=== PATIENT | female | born 1990 | race Caucasian/White ===

== ENCOUNTER → 2020-09-05 14:14 | Outpatient (CLI) | payer OTHER, SELFPAY ==
--- NOTE | 2020-09-05 14:20 | DI.RAD.S_ITS ---
PROCEDURE: XR LUMBAR SPINE 2-3V INDICATIONS: POST LUMAR LAMINECTOMY TECHNIQUE: 3 views of the lumbar spine were acquired. COMPARISON: None. FINDINGS: Bones: 5 [id number] vertebrae are present. There is normal bony alignment. No vertebral body compression fractures. No suspicious bony lesions. An IUD is present. Soft tissues: Overlying bowel gas pattern is normal. No suspicious soft tissue calcifications. IMPRESSION: Normal lumbar spine. Dictated by: Waldemar Corral M.D. on 09/05/2020 at 16:17 Approved by: Waldemar Corral M.D. on 09/05/2020 at 16:18
== END ==
PROVIDERS: PCP Family Medicine; Referring Provider Physician Assistant; Visit Provider Physician Assistant
DX: Z98.890 Other specified postprocedural states (principal); Z09 Encounter for follow-up examination after completed treatment for conditions other than malignant neoplasm
CPT/HCPCS: 72100

== ENCOUNTER → 2020-11-27 09:31 | Outpatient (CLI) | payer OTHER, SELFPAY ==
[2020-11-27 10:38] LABS: Add Manual Diff / Slide Review NO; Basophils Absolute Auto 100 /uL (0-100); Basophils Percent Auto 1.5 % (0-2); Eosinophils Absolute Auto 400 /uL (0-450); Eosinophils Percent Auto 3.6 % (2-4); Hematocrit 40.8 % (36-46); Hemoglobin 12.9 g/dL (12.0-16.0); Lymphocytes Absolute Auto 3100 /uL (1100-4500); Lymphocytes Percent Auto 31.2 % (25-40); Mean Corpuscular HGB Conc 31.6 % (30-36); Mean Corpuscular Volume 85.4 fL (80-100); Monocytes Absolute Auto 700 /uL (0-900); Monocytes Percent Auto 7.1 % (3-14); Neutrophils Absolute Auto 5600 /uL (1500-7000); Neutrophils Percent Auto 56.6 % (50-75); Platelet Count 328 X10^3/uL (150-400); Red Blood Cell Count 4.78 X10^6/uL (4.0-5.2); Red Cell Distribution Width 13.1 % (11.6-14.8)
[2020-11-27 11:15] LABS: Alanine Aminotransferase 65 IU/L (<35); Albumin 4.5 g/dL (3.5-5.0); Albumin Globulin Ratio 1.6 (1.0-2.8); Alkaline Phosphatase 126 U/L (38-126); Aspartate Aminotransferase 45 IU/L (14-36); BUN Creatinine Ratio 14.3 (6-22); Bilirubin Total 0.2 mg/dL (0.2-1.3); Blood Urea Nitrogen 8 mg/dL (7-17); Carbon Dioxide 28 mmol/L (22-32); Chloride 103 mmol/L (98-107); Estimated Glomerular Filt Rate > 60.0 mL/min (>60); Globulin 2.9 g/dL (1.7-4.1); Glucose 88 mg/dL (70-100); HEMOLYSIS < 15 (0-50); Potassium 4.8 mmol/L (3.4-5.1); Sodium 140 mmol/L (137-145); Total Protein 7.4 g/dL (6.3-8.2)
[2020-11-27 11:48] LABS: TSH w/ Reflex to FT4 1.45 uIU/mL (0.47-4.68)
[2020-11-27 17:39] LABS: Cholesterol 198 mg/dL (140-199); HDL Cholesterol 50 mg/dL (40-60); LDL Cholesterol Calculated 116 mg/dL (<100); Triglycerides 159 mg/dL (35-150)
[2020-11-28 12:09] LABS: Insulin Level Total 27.6 uIU/mL (2.6-24.9)
[2020-12-03 07:08] LABS: Percent Free Testosterone 1.63 % (0.50-2.80); Testosterone Free 0.69 ng/dL (0.10-0.85); Testosterone Total 42.4 ng/dL (10.0-55.0)
== END ==
PROVIDERS: PCP Family Medicine; Referring Provider Obstetrics & Gynecology; Visit Provider Obstetrics & Gynecology
DX: R10.2 Pelvic and perineal pain (principal)
CPT/HCPCS: 36415; 80053; 80061; 82627; 83525; 84402; 84403; 84443; 85025

== ENCOUNTER → 2021-04-30 08:16 | Outpatient (CLI) | payer BC, SELFPAY ==
--- NOTE | 2021-04-30 | DI.MRI.S_ITS ---
PROCEDURE: MR LUMBAR SPINE WO CON INDICATIONS: Intervertebral disc disorders with radiculopathy TECHNIQUE: Noncontrast sagittal T1 spin echo and T2 fast echo, sagittal STIR, axial T1 and T2 fast spin echo through the lumbar spine. In cases with scoliosis, additional coronal T2 fast spin echo may be performed. COMPARISON: Outside Film, MR, MR LUMBAR SPINE WITHOUT CONTRAST, 07/16/2020, 22:48. FINDINGS: These images demonstrate postsurgical changes of left hemilaminectomy at L5-S1 for presumed microdiscectomy. There are expected postsurgical changes in the regional soft tissues. No fluid collection or other unexpected postsurgical finding in the region. At L5-S1, there is disc desiccation and disc height loss with an annular fissure and diffuse disc bulge along with a superimposed broad-based posterior disc protrusion. Herniated disc material flattens and indents the ventral thecal sac and significantly displaces the bilateral descending S1 nerve roots within both subarticular zones. Findings are suspicious for impingement. Foraminal components of the disc bulge and facet hypertrophy combine to produce moderate left and mild right neural foraminal stenosis. There is mass effect upon the exiting left L5 nerve root within the left neural foramen. At L4-L5, disc desiccation and disc height loss with a an annular fissure and posterior disc protrusion. Disc material flattens and indents the ventral thecal sac with mild displacement of the descending L5 nerve roots. No neural foraminal stenosis. From T12-L1 through L3-L4, no spinal canal stenosis, neural foraminal stenosis, or significant degenerative change. Normal lumbar vertebral body height and alignment. Discogenic marrow edema at L5-S1. Otherwise normal bone marrow signal intensity. Normal position and appearance of the conus. IMPRESSION: Postsurgical changes of L5-S1 laminectomy and partial discectomy. Recurrent/residual disc herniation at L5-S1 producing suspected impingement of the descending S1 nerve roots bilaterally. Mild mass effect on the descending L5 nerve roots by disc protrusion at L4-L5. Dictated by: Perez Cooper M.D. on 04/30/2021 at 9:13 Approved by: Perez Cooper M.D. on 04/30/2021 at 9:17
--- NOTE | 2021-04-30 | DI.MRI.S_ITS ---
PROCEDURE: MR CERVICAL SPINE WO CON INDICATIONS: Intervertebral disc disorders with radiculopathy TECHNIQUE: Noncontrast sagittal T1 spin echo and T2 fast spin echo, sagittal STIR, foraminal oblique sagittal T2 fast spin echo, and axial gradient echo or T2 fast spin echo through the cervical spine. COMPARISON: None. FINDINGS: Straightening and mild reversal of the usual cervical lordosis. No listhesis. Vertebral body heights maintained. No suspicious focal marrow signal abnormality or bone marrow edema. Normal morphology and signal intensity of the cervical cord. There is no syrinx. Prevertebral and paraspinous soft tissues grossly unremarkable in the absence of IV contrast. C2-C3: No spinal canal or neural foraminal stenosis. C3-C4: No spinal canal or neural foraminal stenosis. C4-C5: No spinal canal or neural foraminal stenosis. C5-C6: Mild bilateral neural foraminal narrowing due to facet and uncovertebral hypertrophy. No spinal canal stenosis. C6-C7: Mild bilateral neural foraminal narrowing due to facet and uncovertebral hypertrophy. No spinal canal stenosis. C7-T1: No spinal canal or neural foraminal stenosis. IMPRESSION: Mild neural foraminal narrowing bilaterally at C5-C6 and C6-C7. No evidence of focal nerve root impingement. Dictated by: Perez Cooper M.D. on 04/30/2021 at 9:09 Approved by: Perez Cooper M.D. on 04/30/2021 at 9:11
== END ==
PROVIDERS: PCP Obstetrics & Gynecology; Referring Provider Neurological Surgery; Visit Provider Physician Assistant
DX: M51.17 Intervertebral disc disorders with radiculopathy, lumbosacral region (principal); M48.02 Spinal stenosis, cervical region
CPT/HCPCS: 72141; 72148

== ENCOUNTER 2022-11-19 17:02 | Emergency (ER) | payer BC, SELFPAY ==
[2022-11-19] VITALS (9 sets, daily range): BP systolic 105–133; BP diastolic 58–79; PULSE 72–99; RESP 16; TEMP 36.9; O2SAT 94–99; BMI 28.0
[2022-11-19 17:41] LABS: Ictotest Urine Negative (Negative)
[2022-11-19 17:51] LABS: Bacteria Urine Few (2-10); RBC Urine 0-1/HPF (0-5/HPF); Squamous Epithelial Cell Urine 10-30 /HPF (0-5/HPF); WBC Urine 5-10/HPF (0-5/HPF)
[2022-11-19 17:52] LABS: Mucus Urine 2+ (Negative)
--- NOTE | 2022-11-19 18:03 | ED_ITS ---
HPI - Abdominal Pain General Chief Complaint: Abdominal Pain Stated Complaint: Ovarian pain Time Seen by Provider: 11/19/22 18:02 History of Present Illness HPI narrative: 32F Nonsmoker with history of ovarian problems presents with a chief complaint of right lower quadrant pain that has been gradually worsening since yesterday. She states it seems to be worse when she moves and improves with rest. She denies any fever or chills. She is had a few episodes of nausea and vomiting bu t does have a strong appetite. She denies any obvious dysuria, frequency or urgency. She denies vaginal bleeding or discharge. She denies any radiation of the pain and states that has not moved. She does have a history of very similar symptoms and states that she is been diagnosed with ovarian cysts in the past. Related Data Previous Rx's Medication Instructions Recorded cephalexin 500 mg capsule 500 mg PO Q6H 7 days #28 caps 11/19/22 hydrocodone 5 mg-acetaminophen 325 1 tab PO Q4-6H PRN pain #10 tabs 11/19/22 mg tablet ketorolac 10 mg tablet 10 mg PO Q6H PRN pain #14 tabs 11/19/22 ondansetron 4 mg disintegrating 4 mg PO TID-QID PRN nausea and 11/19/22 tablet vomiting #10 tabs Review of Systems Review of Systems Narrative: GENERAL: Denies chills, fatigue, malaise, fever, sweats. HEENT: Denies sinus pain, ear pain, sore throat, difficulty swallowing, dizziness. RESPIRATORY: Denies dyspnea, cough, wheezing, hemoptysis, sputum. CARDIOVASCULAR: Denies chest pain, palpitations, orthopnea, edema, GASTROINTESTINAL: See HPI : See HPI MUSCULOSKELETAL: denies weakness, joint pain, or bony pain SKIN: Denies rash, skin lesions, or other NEUROLOGIC: Denies weakness, headache, numbness, change in speech, confusion, seizures, incoordination. PSYCHIATRIC: No concerning psychosocial issues. 12 point review of systems is negative except for those stated above Exam Narrative Exam Narrative: GENERAL: [32] year old patient appears stated age. Well-developed patient, in mild distress. HEAD: Atraumatic. Normocephalic. EYES: Pupils equal round and reactive. Extraocular motions intact. No scleral icterus. No injection or drainage. ENT: Nose without bleeding, purulent drainage. Throat without erythema, tonsill ar hypertrophy or exudate. Airway patent. NECK: Trachea midline. Non tender CARDIOVASCULAR: Regular rate and rhythm without murmurs, gallops, or rubs. RESPIRATORY: Clear to auscultation. Breath sounds equal bilaterally. No wheezes, rales, or rhonchi. GASTROINTESTINAL: Abdomen soft, mild right lower quadrant tenderness, no rebound, no guarding, no psoas or obturator signs, nondistended. Negative heel tap, no peritoneal signs EXTREMITIES: No edema or joint tenderness. BACK: Nontender without deformity or crepitance. No flank tenderness. NEURO: AOx3. SKIN: No rash or erythema of visible areas Initial Vital Signs Initial Vital Signs: Vital Signs Temperature 98.4 F 11/19/22 17:09 Pulse Rate 99 H 11/19/22 17:09 Respiratory Rate 16 11/19/22 17:09 Blood Pressure 133/79 11/19/22 17:09 Pulse Oximetry 99 11/19/22 17:09 Oxygen Delivery Method Room Air 11/19/22 17:09 Course Orders Ordered: ED Orders 11/19/22 17:15 EKG-12 Lead Stat 11/19/22 17:28 Ictotest Urine Stat Urine Culture Stat Urine Microscopic Stat 11/19/22 18:04 US pelvic complete Stat 11/19/22 19:02 Complete Blood Count AUTO DIFF Stat Comprehensive Metabolic Panel Stat Lipase Stat 11/19/22 19:39 CT abdomen pelvis w con Stat Discontinued Medications Hydrocodone Bitart/Acetaminophen (Hydrocodone/Acet 5/325 Prepack) 1 bottle MISC SEEINSTR ONE Stop: 11/19/22 20:53 Last Admin: 11/19/22 20:58 Dose: 1 bottle Documented By: FERNANDO Cefazolin Sodium (Cephalexin 250 Mg Cap Prepack) 1 bottle MISC SEEINSTR ONE Stop: 11/19/22 20:54 Last Admin: 11/19/22 20:58 Dose: 250 mg Documented By: FERNANDO Sodium Chloride (Normal Saline 0.9%) 1,000 mls @ 1,000 mls/hr IV BOLUS ONE Stop: 11/19/22 20:38 Last Infusion: 11/19/22 20:56 Dose: 0 mls/hr Documented By: Admin: 11/19/22 19:51 Dose: 1,000 mls/hr Documented By: ARTUR Ketorolac Tromethamine (Ketorolac 30 Mg/Ml Vial) 15 mg IV NOW ONE Stop: 11/19/22 19:40 Last Admin: 11/19/22 19:51 Dose: 15 mg Documented By: ARTUR Ondansetron HCl (Ondansetron 4 Mg Odt) 4 mg PO NOW PRN PRN Reason: Nausea And Vomiting Ondansetron HCl (Ondansetron 4 Mg/2 Ml Inj) 4 mg IV NOW PRN PRN Reason: Nausea And Vomiting Last Admin: 11/19/22 19:51 Dose: 4 mg Documented By: ARTUR Ondansetron HCl (Ondansetron 4 Mg Odt Prepack) 1 bottle MISC SEEINSTR ONE Stop: 11/19/22 20:53 Last Admin: 11/19/22 20:58 Dose: 1 bottle Documented By: FERNANDO Vital Signs Vital signs: Vital Signs - 8 hr 11/19/22 17:09 11/19/22 17:52 11/19/22 18:00 Temperature 98.4 F Pulse Rate 99 H 81 82 Respiratory Rate 16 Blood Pressure 133/79 113/58 L Pulse Oximetry 99 98 97 Oxygen Delivery Method Room Air 11/19/22 19:06 11/19/22 19:07 11/19/22 19:07 Temperature Pulse Rate 84 83 Respiratory Rate Blood Pressure 116/78 Pulse Oximetry 97 97 Oxygen Delivery Method 11/19/22 19:30 11/19/22 20:06 11/19/22 20:09 Temperature Pulse Rate 86 83 Respiratory Rate Blood Pressure 116/77 Pulse Oximetry 97 94 Oxygen Delivery Method 11/19/22 20:09 11/19/22 20:30 11/19/22 20:30 Temperature Pulse Rate 77 72 Respiratory Rate Blood Pressure 105/60 Pulse Oximetry 98 98 Oxygen Delivery Method MDM - Abdominal Pain Lab Data 11/19/22 19:02 11/19/22 19:02 Labs: Lab Results 11/19/22 11/19/22 11/19/22 Range/Units 17:28 19:02 19:02 WBC 9.5 (4.5-11.0) X10^3/uL RBC 4.38 (4.0-5.2) X10^6/uL Hgb 12.3 (12.0-16.0) g/dL Hct 36.8 (36-46) % MCV 84.1 (80-100) fL MCH 28.1 (26-34) PG MCHC 33.4 (30-36) % RDW 12.9 (11.6-14.8) % Plt Count 247 (150-400) X10^3/uL Neut % (Auto) 54.1 (50-75) % Lymph % (Auto) 35.6 (25-40) % Saunders % (Auto) 7.1 (3-14) % Eos % (Auto) 2.5 (2-4) % Baso % (Auto) 0.7 (0-2) % Neut # (Auto) 5100 (2427-5576) /uL Lymph # (Auto) 3400 (9463-2902) /uL Saunders # (Auto) 700 (0-900) /uL Eos # (Auto) 200 (0-450) /uL Baso # (Auto) 100 (0-100) /uL Sodium 138 (137-145) mmol/L Potassium 4.1 (3.4-5.1) mmol/L Chloride 106 (98-107) mmol/L Carbon Dioxide 26 (22-32) mmol/L BUN 11 (7-17) mg/dL Creatinine 0.65 (0.52-1.04) mg/dL Estimated GFR > 60 (>60) mL/min BUN/Creatinine Ratio 16.9 (6-22) Glucose 96 (70-100) mg/dL Calcium 9.5 (8.4-10.2) mg/dL Total Bilirubin 0.5 (0.2-1.3) mg/dL AST 28 (14-36) IU/L ALT 23 (<35) IU/L Alkaline Phosphatase 81 (38-126) U/L Total Protein 7.3 (6.3-8.2) g/dL Albumin 4.3 (3.5-5.0) g/dL Globulin 3.0 (1.7-4.1) g/dL Albumin/Globulin Ratio 1.4 (1.0-2.8) Lipase 47 (23-300) U/L Ur Bilirubin Confirm Negative (Negative) Urine RBC 0-1/hpf (0-5/HPF) Urine WBC 5-10/hpf H (0-5/HPF) Ur Squamous Epith Cells 10-30 /hpf H (0-5/HPF) Urine Bacteria Few (2-10) H (None) Urine Mucus 2+ H (Negative) Point of care testing: Point of Care Testing Test Results Negative Urine Dip Bedside Urine Glucose Negative Bedside Urine Bilirubin + 1 Bedside Urine Ketone +/- 5 Urine Specific [place] 1.030 Bedside Urine Occult Blood - Negative Bedside Urine pH 6.0 Bedside Urine Protein +/- 15 Bedside Urine Urobilinogen - Negative Bedside Urine Nitrite - Negative Bedside Urine Leukocytes + 70 Esterase MDM Narrative Medical decision making narrative: [32] year old patient presents with rather quadrant pain Multiple etiologies for patient's symptoms considered including, but not limited to: [Ovarian cyst versus kidney stone versus appendicitis versus torsion versus tubo-ovarian abscess versus other] Prior Charts reviewed in our EMR Primary Historian: patient Labs reviewed and interpreted by myself: No leukocytosis or left shift, no signs of anemia, primary electrolytes and renal function within normal limits, urine suggest UTI Imaging reviewed: Pelvic ultrasound demonstrates[no evidence of torsion], abdo men and pelvis CT with IV contrast demonstrates[no kidney stone, normal appendix, pelvic congestion syndrome] Patient's symptoms improved over duration of stay with above-stated therapies. She has no signs of sepsis, labs are reassuring, imaging suggest against any ovarian cyst, torsion, tubo-ovarian abscess, kidney stone or appendicitis. Pain is well controlled, she is tolerating orals and appropriate for discharge Findings and discharge diagnosis discussed with patient/family followed by madelyn balization of understanding Return precautions discussed with patient/family whom verbalize understanding of diagnosis and plan Discharge Plan Departure Patient Disposition: Home Clinical Impression: UTI (urinary tract infection), Female pelvic congestion syndrome Instructions: DI for Urinary Tract Infection (UTI) Activity Restrictions/Additional Instructions: *You have been diagnosed with [lower abdominal pain secondary to a urinary tract infection and pelvic congestion syndrome. As we discussed there is no evidence of appendicitis, ovarian cyst or ovarian torsion. *What to do: *Please continue to take your regular medications as directed. [ x] New medication prescriptions sent to your pharmacy: [ [facility]] [ ] New medication written as a paper prescription [ ] No new medications given *Please follow up with your primary care provider in 2-3 days, call for an appointment. Let them know you were seen in the Emergency Department and that we ask that you be seen in follow up. We will electronically transmit a record of today's note if your PCP is in our system *If you do not have a primary care provider please contact the [facility] Resource line at [phone]. They will ask some questions about your medical history and help get you set up with a doctor in the community. *Return to Emergency Department if you should have any new, worsening or concerning symptoms, such as [fever greater than 101 F, shaking chills, worsening pain, persistent vomiting or other bothersome symptoms] Prescriptions: New hydrocodone-acetaminophen 5-325 mg tablet 1 tab PO Q4-6H PRN (Reason: pain) Qty: 10 0RF ketorolac 10 mg tablet 10 mg PO Q6H PRN (Reason: pain) Qty: 14 0RF cephalexin 500 mg capsule 500 mg PO Q6H 7 Days Qty: 28 0RF ondansetron 4 mg tablet,disintegrating 4 mg PO TID-QID PRN (Reason: nausea and vomiting) Qty: 10 0RF Referrals: Kirsty Clarke DO [Primary Care Provider] - Foreign Ryees MD [Physician] - Stand Alone Forms: Patient Portal/API
--- NOTE | 2022-11-19 18:04 | DI.US.S_ITS ---
PROCEDURE: US PELVIC LIMITED INDICATIONS: RLQ pain TECHNIQUE: Real-time transabdominal scanning was performed of the pelvic organs, with image documentation. COMPARISON: None. FINDINGS: Uterus: Uterus is anteverted and normal in size at 8.7 x 4.4 x 4.8 cm. The myometrium is homogeneous. The endometrium measures 7 mm combined thickness. Intrauterine device is in appropriate position. There is an intramural fibroid along the right anterior aspect of the uterus measuring 1.0 x 0.8 x 1.0 cm. There are multiple prominent and dilated uterine vessels. Ovaries: The right ovary measures 3.6 x 2.4 x 2.9 cm, with a calculated ovarian volume of 13.0 cc. The left ovary measures 3.2 x 2.3 x 2.1 cm, with a calculated ovarian volume of 8.0 cc. The ovaries have a normal sonographic appearance. Less than 12 follicles can be seen in each ovary. No adnexal masses are seen. There is normal Doppler arterial flow to the ovaries. Other: No pathologic free abdominal or pelvic fluid. IMPRESSION: 1. No sonographic evidence of ovarian torsion. 2. Intramural uterine fibroid measuring up to 1.0 cm. 3. Dilated and tortuous uterine vasculature which may reflect pelvic congestion syndrome. Recommend clinical correlation. 4. IUD is in appropriate position. We strive to produce accurate, complete, and clear reports of imaging services. To assist us in improving patient care, this report was composed using standard report templates and voice recognition software. Therefore, it may contain abnormal punctuation, insertions and/or omissions. Occasional wrong-word or sound-alike substitutions may occur. Though we review the report and make efforts to correct it, we do recommend that the report be read carefully in proper context to recognize any text inaccuracies. Approved by: Nohemi Cartwright M.D. on 11/19/2022 at 19:47
[2022-11-19 19:11] LABS: Add Manual Diff / Slide Review NO; Basophils Absolute Auto 100 /uL (0-100); Basophils Percent Auto 0.7 % (0-2); Eosinophils Absolute Auto 200 /uL (0-450); Eosinophils Percent Auto 2.5 % (2-4); Hematocrit 36.8 % (36-46); Hemoglobin 12.3 g/dL (12.0-16.0); Lymphocytes Absolute Auto 3400 /uL (1100-4500); Lymphocytes Percent Auto 35.6 % (25-40); Mean Corpuscular HGB Conc 33.4 % (30-36); Mean Corpuscular Hemoglobin 28.1 PG (26-34); Mean Corpuscular Volume 84.1 fL (80-100); Monocytes Absolute Auto 700 /uL (0-900); Monocytes Percent Auto 7.1 % (3-14); Neutrophils Absolute Auto 5100 /uL (1500-7000); Neutrophils Percent Auto 54.1 % (50-75); Platelet Count 247 X10^3/uL (150-400); Red Blood Cell Count 4.38 X10^6/uL (4.0-5.2); Red Cell Distribution Width 12.9 % (11.6-14.8); White Blood Cell Count 9.5 X10^3/uL (4.5-11.0)
[2022-11-19 19:22] LABS: Alanine Aminotransferase 23 IU/L (<35); Albumin 4.3 g/dL (3.5-5.0); Albumin Globulin Ratio 1.4 (1.0-2.8); Alkaline Phosphatase 81 U/L (38-126); Aspartate Aminotransferase 28 IU/L (14-36); BUN Creatinine Ratio 16.9 (6-22); Bilirubin Total 0.5 mg/dL (0.2-1.3); Blood Urea Nitrogen 11 mg/dL (7-17); Calcium 9.5 mg/dL (8.4-10.2); Carbon Dioxide 26 mmol/L (22-32); Chloride 106 mmol/L (98-107); Estimated Glomerular Filt Rate > 60 mL/min (>60); Glucose 96 mg/dL (70-100); HEMOLYSIS < 15 (0-50); Lipase 47 U/L (23-300); Potassium 4.1 mmol/L (3.4-5.1); Sodium 138 mmol/L (137-145); Total Protein 7.3 g/dL (6.3-8.2)
--- NOTE | 2022-11-19 19:39 | DI.CT.S_ITS ---
PROCEDURE: CT ABDOMEN PELVIS W CON INDICATIONS: RLQ pain; nausea and vomiting. TECHNIQUE: After the administration of IV contrast, axial sections were acquired from the lung bases to the pubic symphysis. Coronal and sagittal reformats were performed. For radiation dose reduction, the following was used: automated exposure control, adjustment of mA and/or kV according to patient size. COMPARISON: None. FINDINGS: Image quality: Excellent. Lung bases: Is mild motion artifact. Heart: Heart is normal in size. ABDOMEN: Liver: No mass lesion. Gallbladder: Within normal limits without calcified gallstones. Biliary ducts: No biliary ductal dilatation. Pancreas: Unremarkable. Spleen: Normal in size. Adrenal Glands: No adrenal nodules. Kidneys and Ureters: No hydronephrosis. Stomach and Bowel: Stomach, small bowel loops, and colon are normal in caliber and wall thickness. The appendix is normal. Peritoneum: No abnormal intraperitoneal fluid. No free air. Ventral Wall: No hernia. Abdominal Nodes: No retroperitoneal or mesenteric adenopathy by size criteria. Vessels: Aorta and inferior vena cava are normal in size. PELVIS: Pelvic Organs: An IUD appears in appropriate position within the uterus. There are prominent parametrial vessels. Bladder: Unremarkable. Pelvic Nodes: No enlarged lymph nodes. Miscellaneous: No inguinal hernias are seen. Bones: Visualized osseous structures demonstrate no suspicious focal lesions. IMPRESSION: 1. No evidence of appendicitis. 2. Prominent parametrial vessels. The findings are nonspecific but may reflect pelvic congestion syndrome in the appropriate clinical context. Dictated by: Angelo Moy M.D. on 11/19/2022 at 20:34 Approved by: Angelo Moy M.D. on 11/19/2022 at 20:36
[2022-11-19] MEDS: SODIUM CHLORIDE 0.9% 1,000 ML 1000 ML IV (19:51)
[2022-11-19] MEDS: KETOROLAC 30 MG/ML VIAL 15 MG IV (19:51)
[2022-11-19] MEDS: ONDANSETRON 4 MG/2 ML INJ IV (19:51)
[2022-11-19] MEDS: ONDANSETRON 4 MG ODT PREPACK 1 BOTTLE MISC (20:58)
[2022-11-19] MEDS: HYDROCODONE/ACET 5/325 PREPACK 1 BOTTLE MISC (20:58)
[2022-11-19] MEDS: cephALEXin 250 MG CAP PREPACK 1 BOTTLE MISC (20:58)
== END 2022-11-19 21:03 | disposition home or self-care (01) ==
PROVIDERS: Emergency Medicine; Emergency Provider Emergency Medicine; PCP Obstetrics & Gynecology
DX: N39.0 Urinary tract infection, site not specified (principal); N94.89 Other specified conditions associated with female genital organs and menstrual cycle
CPT/HCPCS: 36415; 74177; 76830; 76856; 80053; 81003; 81015; 81025; 83690; 85025; 87086; 93975; 96361; 96374; 96375; 99284; J1885; J2405; Q9967

== ENCOUNTER 2024-11-10 06:36 | Emergency (ER) | payer OTHER, SELFPAY ==
[2024-11-10 06:47] VITALS: BP 121/88; PULSE 84; RESP 18; O2SAT 100; BMI 25.7
--- NOTE | 2024-11-10 07:21 | ED.BACK ---
HPI - Back Pain/Injury General Chief Complaint: Back Pain/Injury Stated Complaint: Cauda Equina syndrome/unusual nerve pain in back Time Seen by Provider: 11/10/24 06:52 Source: patient History of Present Illness HPI Narrative: Patient is a 34-year-old female with history of cauda equina syndrome. She had surgery in 2021 at [place]. At that time she presented with left leg weakness reports that her left leg gave out from under her she has had ongoing pain and some numbness in that leg since then. She never had any loss of urine or stool. Today over last 2 days she has had increasing pain and weakness. This is more than usual. Again she has not had any loss of urine or stool no fever no chills. She is able to control her pain with marijuana and pregabalin she does not typically take narcotic. But really feel like she is having significant pain in the left lower lumbar spine radiating down into her left leg to just above her knee Related Data Previous Rx's ?Medication ?Instructions ?Recorded hydrocodone 5 mg-acetaminophen 325 1 tab PO Q4-6H PRN pain #10 tabs 11/19/22 mg tablet ketorolac 10 mg tablet 10 mg PO Q6H PRN pain #14 tabs 11/19/22 ondansetron 4 mg disintegrating 4 mg PO TID-QID PRN nausea and 11/19/22 tablet vomiting #10 tabs celecoxib 100 mg capsule (Celebrex) 100 mg PO BID #60 caps 11/10/24 celecoxib 50 mg capsule (Celebrex) 100 mg (2 x 50 mg) PO BID #60 caps 11/10/24 hydrocodone 5 mg-acetaminophen 325 1 tab PO Q6H PRN pain #10 tabs 11/10/24 mg tablet hydrocodone 5 mg-acetaminophen 325 1 tab PO Q6H PRN pain #10 tabs 11/10/24 mg tablet methylprednisolone 4 mg tablets in See Rx Instructions PO .COMPLEX 11/10/24 a dose pack #21 ea methylprednisolone 4 mg tablets in See Rx Instructions PO .COMPLEX 11/10/24 a dose pack (Medrol (Dion)) #21 ea Allergies Allergy/AdvReac Type Severity Reaction Status Date / Time Penicillins Allergy Rash Verified 11/10/24 06:47 Exam Initial Vital Signs Initial Vital Signs: Vital Signs Pulse Rate 84 11/10/24 06:47 Respiratory Rate 18 11/10/24 06:47 Blood Pressure 121/88 11/10/24 06:47 Pulse Oximetry 100 11/10/24 06:47 Oxygen Delivery Method Room Air 11/10/24 06:47 GENERAL: Alert 34-year-old female appears in pain HEENT: Head atraumatic,EOMI, pupils reactive, face symmetric, [moist] mucous membranes CARDIOVASCULAR: Regular rate and rhythm without murmurs, rubs or gallops. RESPIRATORY: Breath sounds equal bilaterally, no wheezes rales or rhonchi. ABDOMEN: Soft, nontender. Normoactive bowel sounds all 4 quadrants. No guarding or rebound. BACK: Surgical scar noted lower lumbar spine tender to touch EXTREMITIES: Normal range of motion, no clubbing or edema. Neurovascularly intact NEUROLOGICAL: Alert and oriented x4.Normal gait and speech. Cranial nerves II through XII grossly intact. Decreased sensation on left leg but at baseline SKIN: Warm, dry, no laceration, no petechiae, no rashes or lesions. Course Orders Ordered: ED Orders 11/10/24 06:48 CBC Auto Diff [Complete Blood Count AUTO DIFF] Stat CMP [Comprehensive Metabolic Panel] Stat CRP [C-Reactive Protein Quant] Stat ESR [Erythrocyte Sedimentation Rate] Stat Test Serum,Qual Stat 11/10/24 07:30 MR lumbar spine wo/w con Stat Discontinued Medications Hydromorphone HCl (Hydromorphone Hcl 0.5 Mg/0.5 Ml Syringe) 0.5 mg IV NOW ONE Stop: 11/10/24 09:16 Last Admin: 11/10/24 09:32 Dose: 0.5 mg Documented By: BON Ketorolac Tromethamine (Ketorolac 30 Mg/Ml Vial) 15 mg IV NOW ONE Stop: 11/10/24 07:32 Last Admin: 11/10/24 07:43 Dose: 15 mg Documented By: BON Vital Signs Vital signs: Vital Signs - 8 hr 11/10/24 06:47 11/10/24 10:04 11/10/24 10:04 Pulse Rate 84 61 Respiratory Rate 18 18 Blood Pressure 121/88 102/67 Pulse Oximetry 100 99 Oxygen Delivery Method Room Air MDM - Back Pain/Injury Lab Data 11/10/24 06:48 11/10/24 06:48 Labs: Lab Results 11/10/24 Range/Units 06:48 WBC 8.2 (4.5-11.0) X10^3/uL RBC 4.42 (4.0-5.2) X10^6/uL Hgb 12.1 (12.0-16.0) g/dL Hct 37.0 (36-46) % MCV 83.8 (80-100) fL MCH 27.5 (26-34) PG MCHC 32.7 (30-36) % RDW 13.0 (11.6-14.8) % Plt Count 244 (150-400) X10^3/uL Neut % (Auto) 56.6 (50-75) % Lymph % (Auto) 32.1 (25-40) % Arthur % (Auto) 7.6 (3-14) % Eos % (Auto) 3.0 (2-4) % Baso % (Auto) 0.7 (0-2) % Neut # (Auto) 4600 (2918-1805) /uL Lymph # (Auto) 2600 (4137-1660) /uL Arthur # (Auto) 600 (0-900) /uL Eos # (Auto) 200 (0-450) /uL Baso # (Auto) 100 (0-100) /uL ESR 6 (0-20) MM/HR Sodium 137 (137-145) mmol/L Potassium 4.2 (3.4-5.1) mmol/L Chloride 104 (98-107) mmol/L Carbon Dioxide 24 (22-32) mmol/L BUN 10 (7-17) mg/dL Creatinine 0.66 (0.52-1.04) mg/dL Estimated GFR > 60 (>60) mL/min BUN/Creatinine Ratio 15.2 (6-22) Glucose 91 (70-99) mg/dL Calcium 9.1 (8.4-10.2) mg/dL Total Bilirubin 0.5 (0.2-1.3) mg/dL AST 25 (14-36) IU/L ALT 16 (<35) IU/L Alkaline Phosphatase 82 (38-126) U/L C-Reactive Protein 0.7 (<1.0) mg/dL Total Protein 7.3 (6.3-8.2) g/dL Albumin 4.5 (3.5-5.0) g/dL Globulin 2.8 (1.7-4.1) g/dL Albumin/Globulin Ratio 1.6 (1.0-2.8) Serum , Qual Negative (Negative) Urine Dip Bedside Urine Glucose Negative Bedside Urine Bilirubin - Negative Bedside Urine Ketone - Negative Urine Specific [place] 1.010 Bedside Urine Occult Blood - Negative Bedside Urine pH 6.0 Bedside Urine Protein - Negative Bedside Urine Urobilinogen - Negative Bedside Urine Nitrite - Negative Bedside Urine Leukocytes - Negative Esterase Imaging Data MR Lumbar spine: Radiologist's Impression: PROCEDURE: MR LUMBAR SPINE WO/W CON INDICATIONS: prior cauda equina, left sided weakness TECHNIQUE: Noncontrast sagittal T1 spin echo and T2 fast spin echo, sagittal STIR, axial T1 and T2 fast spin echo through the lumbar spine. In cases with scoliosis, additional coronal T2 fast spin echo may be performed. After the administration of contrast, sagittal and axial T1 spin echo with fat saturation through the lumbar spine. COMPARISON: [facility], , MR LUMBAR SPINE WO CON, 04/30/2021, 8:47. FINDINGS: Image quality: Diagnostic Alignment and curvature: No spondylolisthesis. Marrow: No acute fracture. Focal edematous Modic changes are seen at L5-S1. This is worse Spinal cord: Cord terminates in expected position. Normal appearance of the cauda equina nerve roots Paraspinous soft tissues: No paravertebral fluid collections identified. T12-L1: No stenosis L1-L2: No stenosis. Mild facet arthropathy L2-L3: Mild facet arthropathy. No stenosis. L3-L4: Small diffuse disc bulge. Mild facet arthropathy. No stenosis. L4-L5: Worsened disc central protrusion and diffuse bulge. [id number] facet arthropathy. Moderate central narrowing affecting both subarticular recesses. Mild bilateral neural foraminal narrowing. L5-S1: Worsened central disc protrusion, ligamentum hypertrophy, facet arthropathy, and diffuse bulge. Severe central narrowing. There is additional epidural lipomatosis. Prior postsurgical changes are seen at this level. Moderate to severe left and moderate right neural foraminal narrowing. IMPRESSION: Worsened spondylosis at L5-S1 primarily with recurrent disc. Postsurgical changes are also seen at this level. Worsened, severe thecal sac narrowing. Neural foraminal narrowing also present, worse on the left. Worsened disc disease also seen at L4-L5. No acute fracture. Worsened edematous Modic changes at L5-S1. Dictated by: Chema Gonzalez M.D. on 11/10/2024 at 8:38 MDM Narrative Medical decision making narrative: Patient is a 34-year-old female history of cauda equina syndrome back in 2020 had surgery in 2021 presenting today with similar symptoms. She has had pain off and on since she can usually tolerate it without opiates. She says over the last couple of days she has noticed increasing left leg weakness where it gives out on her no changes in bowel or bladder habits. No fever. Differential diagnosis: Radiculopathy cauda equina epidural abscess hematoma Blood work has been reviewed she has no leukocytosis no anemia no electrolyte abnormality MRI does show worsened spondylolisthesis L5-S1 with recurrent disc. She has worsened severe thecal sac narrowing and neural foraminal narrowing also present. No fracture worsened edematous Modic changes L5-S1 Patient was given Toradol she says that the pain has gotten better but is still having pretty severe . Given Dilaudid pain Phone call to [facility] to spine 10am Dr. Duran, spine surgeon updated on MRI results and patient's symptoms. Agrees this is likely radiculopathy and close outpatient follow up. Happy to see her in clinic. Recommends Medrol Dosepak. Patient reports it Dilaudid has a lot with her pain. She says it did not about taking him opiates but would like something stronger to go home with. Discussed plan with patient. Agrees with taking medications. She is also given spine surgeons here more locally but we will need a referral from PCP. She has a primary care appointment but not until January 09. It is unlikely it will be moved up. Discharge Plan Departure Patient Disposition: Home Clinical Impression: Radiculopathy Instructions: DI for Lumbar Radiculopathy Activity Restrictions/Additional Instructions: *You have been diagnosed with radicular *What to do: At this time increase activity as tolerated. You will need follow up with spine. [facility] we will be calling you other options are kalie [facility] with Dr. Aguiar or [facility] *Continue to take medications as directed Medrol Dosepak take as directed Celebrex twice daily may start after Medrol Dosepak [place] 1 tablet every 4-6 hours if needed for severe pain *Follow up with your primary care provider in 2-3 days or call [phone] *Return to ER if you should have increasing weakness loss of urine loss of bowel, leg giving out or any new, worsening or concerning symptoms Prescriptions: New methylprednisolone 4 mg tablets,dose pack See Rx Instructions .ROUTE .COMPLEX Qty: 21 0RF Rx Instructions: for 6 days hydrocodone-acetaminophen 5-325 mg tablet 1 tab PO Q6H PRN (Reason: pain) Qty: 10 0RF celecoxib [Celebrex] 50 mg capsule 100 mg PO BID Qty: 60 0RF celecoxib [Celebrex] 100 mg capsule 100 mg PO BID Qty: 60 0RF hydrocodone-acetaminophen 5-325 mg tablet 1 tab PO Q6H PRN (Reason: pain) Qty: 10 0RF methylprednisolone [Medrol (Dion)] 4 mg tablets,dose pack See Rx Instructions .ROUTE .COMPLEX Qty: 21 0RF Rx Instructions: for 6 days No Action hydrocodone-acetaminophen 5-325 mg tablet 1 tab PO Q4-6H PRN (Reason: pain) Qty: 10 0RF ketorolac 10 mg tablet 10 mg PO Q6H PRN (Reason: pain) Qty: 14 0RF ondansetron 4 mg tablet,disintegrating 4 mg PO TID-QID PRN (Reason: nausea and vomiting) Qty: 10 0RF Referrals: Kirsty Clarke DO [Primary Care Provider, [employer] [facility]] Aric Claros MD [Physician, Orthopedic Surgery] Jesus Alvarez MD [Non-Staff, Orthopedic Surgery] Stand Alone Forms: Patient Portal/API
--- NOTE | 2024-11-10 07:30 | DI.MRI.S_ITS ---
PROCEDURE: MR LUMBAR SPINE WO/W CON INDICATIONS: prior cauda equina, left sided weakness TECHNIQUE: Noncontrast sagittal T1 spin echo and T2 fast spin echo, sagittal STIR, axial T1 and T2 fast spin echo through the lumbar spine. In cases with scoliosis, additional coronal T2 fast spin echo may be performed. After the administration of contrast, sagittal and axial T1 spin echo with fat saturation through the lumbar spine. COMPARISON: [facility], , MR LUMBAR SPINE WO CON, 04/30/2021, 8:47. FINDINGS: Image quality: Diagnostic Alignment and curvature: No spondylolisthesis. Marrow: No acute fracture. Focal edematous Modic changes are seen at L5-S1. This is worse Spinal cord: Cord terminates in expected position. Normal appearance of the cauda equina nerve roots Paraspinous soft tissues: No paravertebral fluid collections identified. T12-L1: No stenosis L1-L2: No stenosis. Mild facet arthropathy L2-L3: Mild facet arthropathy. No stenosis. L3-L4: Small diffuse disc bulge. Mild facet arthropathy. No stenosis. L4-L5: Worsened disc central protrusion and diffuse bulge. [id number] facet arthropathy. Moderate central narrowing affecting both subarticular recesses. Mild bilateral neural foraminal narrowing. L5-S1: Worsened central disc protrusion, ligamentum hypertrophy, facet arthropathy, and diffuse bulge. Severe central narrowing. There is additional epidural lipomatosis. Prior postsurgical changes are seen at this level. Moderate to severe left and moderate right neural foraminal narrowing. IMPRESSION: Worsened spondylosis at L5-S1 primarily with recurrent disc. Postsurgical changes are also seen at this level. Worsened, severe thecal sac narrowing. Neural foraminal narrowing also present, worse on the left. Worsened disc disease also seen at L4-L5. No acute fracture. Worsened edematous Modic changes at L5-S1. Dictated by: Chema Gonzalez M.D. on 11/10/2024 at 8:38 Approved by: Chema Gonzalez M.D. on 11/10/2024 at 8:43
[2024-11-10 07:38] LABS: Add Manual Diff / Slide Review NO; Hematocrit 37.0 % (36-46); Hemoglobin 12.1 g/dL (12.0-16.0); Lymphocytes Absolute Auto 2600 /uL (1100-4500); Mean Corpuscular HGB Conc 32.7 % (30-36); Mean Corpuscular Hemoglobin 27.5 PG (26-34); Mean Corpuscular Volume 83.8 fL (80-100); Platelet Count 244 X10^3/uL (150-400)
[2024-11-10] MEDS: KETOROLAC 30 MG/ML VIAL 15 MG IV (07:43)
[2024-11-10 07:46] LABS: Alanine Aminotransferase 16 IU/L (<35); Albumin 4.5 g/dL (3.5-5.0); Albumin Globulin Ratio 1.6 (1.0-2.8); Alkaline Phosphatase 82 U/L (38-126); Blood Urea Nitrogen 10 mg/dL (7-17); Calcium 9.1 mg/dL (8.4-10.2); Carbon Dioxide 24 mmol/L (22-32); Chloride 104 mmol/L (98-107); Estimated Glomerular Filt Rate > 60 mL/min (>60); Globulin 2.8 g/dL (1.7-4.1); Glucose 91 mg/dL (70-99); HEMOLYSIS < 15 (0-50); Potassium 4.2 mmol/L (3.4-5.1); Sodium 137 mmol/L (137-145); Total Protein 7.3 g/dL (6.3-8.2)
[2024-11-10 07:49] LABS: Pregnancy Test Serum,Qual Negative (Negative)
--- NOTE | 2024-11-10 07:51 | PC.NURSE ---
Pt to MRI, states surgical steel in facial piercings.
[2024-11-10 10:04] VITALS: BP 102/67; PULSE 61; RESP 18; O2SAT 99
== END 2024-11-10 10:34 | disposition home or self-care (01) ==
PROVIDERS: Emergency Provider Emergency Medicine; PCP Obstetrics & Gynecology
DX: M54.16 Radiculopathy, lumbar region (principal); F12.90 Cannabis use, unspecified, uncomplicated
CPT/HCPCS: 36415; 72158; 80053; 81003; 84703; 85025; 85651; 86140; 96374; 96375; 99284; A9579; J1171; J1885